=== PATIENT | male | born 1955 | race Caucasian/White ===

== ENCOUNTER 2020-04-27 17:51 | Outpatient (CLI) | payer OTHER, SELFPAY ==
[2020-04-27 18:20] LABS: Basophils Absolute Auto 0.07 K/mm3 (0.00-0.10); Basophils Percent Auto 0.9 % (0.0-1.0); Eosinophils Absolute Auto 0.32 K/mm3 (0.02-0.50); Eosinophils Percent Auto 4.1 % (1.0-6.0); Hematocrit 44.9 % (40.0-54.0); Hemoglobin 15.4 g/dL (14.0-18.0); Immature Granulocyte Absolute 0.05 K/mm3 (0.00-0.00); Immature Granulocyte Percent A 0.6 % (0.0-0.0); Lymphocytes Absolute Auto 2.66 K/mm3 (1.10-4.50); Lymphocytes Percent Auto 33.7 % (18.0-42.0); Mean Corpuscular HGB Conc 34.3 g/dL (32.0-36.0); Mean Corpuscular Volume 90.3 fL (78.0-102.0); Mean Platelet Volume 10.2 fl (8.7-11.0); Monocytes Absolute Auto 1.06 K/mm3 (0.10-0.90); Monocytes Percent Auto 13.4 % (2.0-11.0); Neutrophils Absolute Auto 3.7 K/mm3 (1.7-7.2); Neutrophils Percent Auto 47.3 % (50.0-70.0); Platelet Count Result 270 K/mm3 (150-420); Red Blood Count 4.97 M/mm3 (4.70-6.10); Red Cell Distribution Width 12.7 % (11.6-14.4); White Blood Count 7.9 K/mm3 (4.8-10.8)
[2020-04-27 18:28] LABS: Add Urine Microscopic? NO; Appearance Urine Clear (Clear); Bilirubin Urine Negative (Negative); Blood Urine Negative (Negative); Color Urine Yellow (Yellow); Glucose Urine UA Negative (Negative); Ketones Urine Negative (Negative); Leukocyte Esterase Ur Negative LEU/UL (Negative); Nitrate Urine Negative (Negative); Protein Urine Negative (Negative); pH Urine 6.5 (5.0-8.0)
[2020-04-27 18:35] LABS: Creatinine Urine 163.43 mg/dL (40-278)
[2020-04-27 18:36] LABS: MALB Creatinine Ratio 18.9 mg/g (0-30); Microalbumin Urine Random 30.9 mg/L
[2020-04-27 19:07] LABS: Alanine Aminotransferase 40 U/L (16-63); Albumin Level 3.9 g/dL (3.4-5.0); Alkaline Phosphatase 73 U/L (46-116); Anion Gap 12.6 mmol/L (7-16); Aspartate Amino Transferase 20 U/L (15-37); Bilirubin,Total 0.3 mg/dL (0.00-1.00); Blood Urea Nitrogen 24 mg/dL (7-18); Calcium 9.3 mg/dL (8.5-10.1); Carbon Dioxide 32 mmol/L (21-32); Chloride 98 mmol/L (98-108); Cholesterol 192 mg/dL (0-200); Estimated Glomerular Filt Rate 57; Glucose 163 mg/dL (70-99); HDL Direct 41 mg/dL (40-60); LDL Cholesterol Calculated 61 mg/dL (<130); Osmolality Calculated 296 mOsm/kg (285-295); Potassium 3.6 mmol/L (3.5-5.1); Prostate Specific Antigen 1.6 ng/mL (< OR = 4.0); Sodium 139 mmol/L (136-145); Total Protein 7.5 g/dL (6.4-8.2); Triglycerides 450 mg/dL (0-150)
[2020-04-27 19:16] LABS: LDL Cholesterol Direct 104 mg/dL (0-130)
== END 2020-04-27 17:52 | disposition home or self-care (01) ==
LOC: CHSLAB 17:55
PROVIDERS: PCP Internal Medicine; Visit Provider Internal Medicine
DX: Z00.00 Encounter for general adult medical examination without abnormal findings (principal); I10 Essential (primary) hypertension; E11.9 Type 2 diabetes mellitus without complications; E78.5 Hyperlipidemia, unspecified; Z12.5 Encounter for screening for malignant neoplasm of prostate
CPT/HCPCS: 36415; 80053; 80061; 81003; 82043; 83036; 83721; 84153; 85025; G0103

== ENCOUNTER 2021-01-01 18:38 | Outpatient (CLI) | payer OTHER, SELFPAY ==
--- NOTE | ~2021-01-01 | XR_ITS ---
EXAMINATION: XR knee RT 3V DATE: 01/01/2021 19:14 INDICATION: Right knee pain. TECHNIQUE: 4 views of right knee were obtained. COMPARISON: None. FINDINGS: There is varus angulation at the knee. No fracture. There is severe osteoarthritis of media l compartment and mild osteoarthritis of lateral and patellofemoral compartments. There is a small kn ee joint effusion. IMPRESSION: 1. Severe right knee osteoarthritis. 2. Small right knee joint effusion. Reviewed, dictated and finalized at location A. ET COORDINATOR
--- NOTE | ~2021-01-01 | XR_ITS ---
EXAMINATION: XR hip RT min 2V DATE: 01/01/2021 19:14 INDICATION: Right hip pain. TECHNIQUE: 2 views of right hip were obtained. COMPARISON: None. FINDINGS: Bone alignment is normal. No fracture. There is mild right hip osteoarthritis. IMPRESSION: 1. Mild right hip osteoarthritis. Reviewed, dictated and finalized at location A. CIATE CREATIVE DIRECTOR
[2021-01-01 19:08] LABS: Hemoglobin A1C 8.6 % (<5.7)
[2021-01-01 19:50] LABS: Alanine Aminotransferase 36 U/L (16-63); Albumin Level 4.1 g/dL (3.4-5.0); Alkaline Phosphatase 70 U/L (46-116); Anion Gap 11 mmol/L (8-16); Aspartate Amino Transferase 19 U/L (15-37); Bilirubin,Total 0.4 mg/dL (0.00-1.00); Blood Urea Nitrogen 25 mg/dL (7-18); Calcium 9.1 mg/dL (8.5-10.1); Carbon Dioxide 31 mmol/L (21-32); Chloride 98 mmol/L (98-108); Cholesterol 210 mg/dL (0-200); Estimated Glomerular Filt Rate 54; Glucose 103 mg/dL (70-99); HDL Direct 48 mg/dL (40-60); LDL Cholesterol Calculated 119 mg/dL (<130); Osmolality Calculated 294 mOsm/kg (285-295); Potassium 3.3 mmol/L (3.5-5.1); Sodium 140 mmol/L (136-145); Total Protein 8.1 g/dL (6.4-8.2); Triglycerides 214 mg/dL (0-150); Uric Acid 5.8 mg/dL (3.5-7.2)
== END 2021-01-01 18:39 | disposition home or self-care (01) ==
LOC: CHSLAB 18:41
PROVIDERS: PCP Internal Medicine; Visit Provider Internal Medicine
DX: M25.561 Pain in right knee (principal); E11.9 Type 2 diabetes mellitus without complications
CPT/HCPCS: 36415; 73502; 73562; 80053; 80061; 83036; 84550

== ENCOUNTER 2021-03-14 16:37 | Outpatient (NON) | payer OTHER, SELFPAY ==
[2021-03-14 17:20] LABS: Basophils Absolute Auto 0.05 K/mm3 (0.00-0.10); Basophils Percent Auto 0.6 % (0.0-1.0); Eosinophils Absolute Auto 0.18 K/mm3 (0.02-0.50); Eosinophils Percent Auto 2.3 % (1.0-6.0); Hemoglobin 15.2 g/dL (14.0-18.0); Immature Granulocyte Absolute 0.02 K/mm3 (0.00-0.00); Immature Granulocyte Percent A 0.3 % (0.0-0.0); Lymphocytes Absolute Auto 1.99 K/mm3 (1.10-4.50); Lymphocytes Percent Auto 25.4 % (18.0-42.0); Mean Corpuscular HGB Conc 34.5 g/dL (32.0-36.0); Mean Corpuscular Volume 89.8 fL (78.0-102.0); Mean Platelet Volume 10.1 fl (8.7-11.0); Monocytes Absolute Auto 0.86 K/mm3 (0.10-0.90); Neutrophils Absolute Auto 4.8 K/mm3 (1.7-7.2); Neutrophils Percent Auto 60.4 % (50.0-70.0); Platelet Count Result 249 K/mm3 (150-420); Red Cell Distribution Width 12.8 % (11.6-14.4); White Blood Count 7.9 K/mm3 (4.8-10.8)
[2021-03-14 17:28] LABS: D Dimer 0.39 mg/L (0.19-0.50)
[2021-03-14 17:39] LABS: Alanine Aminotransferase 31 U/L (16-63); Albumin Level 3.7 g/dL (3.4-5.0); Alkaline Phosphatase 66 U/L (46-116); Anion Gap 10 mmol/L (8-16); Aspartate Amino Transferase 16 U/L (15-37); Bilirubin,Total 0.7 mg/dL (0.00-1.00); Blood Urea Nitrogen 15 mg/dL (7-18); Calcium 9.3 mg/dL (8.5-10.1); Carbon Dioxide 29 mmol/L (21-32); Chloride 97 mmol/L (98-108); Creatine Kinase 100 U/L (39-308); Estimated Glomerular Filt Rate > 60; Glucose 93 mg/dL (70-99); Magnesium 2.1 mg/dL (1.8-2.4); NT Pro B Type Natriuretic Pept 25 pg/mL (0-125); Osmolality Calculated 282 mOsm/kg (285-295); Potassium 3.2 mmol/L (3.5-5.1); Sodium 136 mmol/L (136-145); Total Protein 7.7 g/dL (6.4-8.2); Troponin I 4.3 ng/L (0.00-60.4)
[2021-03-14 17:41] LABS: Creatine Kinase MB < 0.50 ng/mL (0.00-5.00)
== END 2021-03-14 16:38 | disposition home or self-care (01) ==
LOC: CHSLAB 16:38
PROVIDERS: PCP Internal Medicine; Visit Provider Internal Medicine
DX: R55 Syncope and collapse (principal)
CPT/HCPCS: 36415; 80053; 82550; 82553; 83735; 83880; 84484; 85025; 85380

== ENCOUNTER 2021-07-09 17:51 | Emergency (ER) | payer OTHER, SELFPAY ==
[2021-07-09 18:00] VITALS: PULSE 72; RESP 16; TEMP 36.6; O2SAT 99
--- NOTE | 2021-07-09 18:19 | ED.SKABFB ---
HPI - Skin/Abscess/Foreign Bdy General Chief complaint: Skin/Abscess/Foreign Body Stated complaint: bug bite on arm, eye problems Source: patient Mode of arrival: ambulatory Limitations: no limitations History of Present Illness HPI narrative: This is a 65-year-old gentleman that presents with some abscess to his right upper arm currently it is red erythematous currently no drainage non fluctuant started a few days ago and has been getting worse apparently he tried poking it with a knife, and possibly related some infection to his right eye is conjunctiva is erythematous without any drainage no fever or chills. complaint: abscess/boil Tetanus up to date: unsure Location: RUE Severity: moderate Related Data Allergies Allergy/AdvReac Type Severity Reaction Status Date / Time No Known Allergies Allergy Verified 07/09/21 18:11 Review of Systems Review of Systems: All systems reviewed & are unremarkable except as noted in HPI and below PMFSH Past Medical History Medical History Patient denies medical problems Exam Const: General: no acute distress and alert Orientation/consciousness: patient oriented x3 HENMT: Head: normal to inspection Eyes: Conjunctivae: conjunctivae normal Pupils: Equal, round and reactive pupils present Neck: Neck: normal visual inspection, no lymphadenopathy and no meningeal signs Chest: Chest palpation & inspection: normal inspection of the chest Resp: Effort & Inspection: normal respiratory effort Auscultation: clear to auscultation bilaterally : Testes: Testes normal Back/Spine/Pelvis: Back: no CVA tenderness Skin: Other: abscess with non fluctuance no drainage warm tender with erythema Neuro: General: patient oriented x3 and moves all extremities Psych: Mental Status: mental status grossly normal Course Course Emergency Course: patient received a shot of ceftriaxone along with tetanus, and because of conjunctival injection received antibiotic eyedrop. Vital Signs Vital signs: Vital Signs Temperature 36.6 C 07/09/21 18:00 Pulse Rate 72 07/09/21 18:00 Respiratory Rate 16 07/09/21 18:00 Pulse Oximetry 99 07/09/21 18:00 Temperature 36.6 C 07/09/21 18:00 Pulse Rate 72 07/09/21 18:00 Respiratory Rate 16 07/09/21 18:00 Pulse Oximetry 99 07/09/21 18:00 Critical Care Time Critical Care Time Critical Care Time: No Discharge Plan Discharge Clinical Impression: Abscess of skin or subcutaneous tissue Qualifiers: Site of cutaneous abscess: extremity Site of cutaneous abscess of extremity: upper extremity Laterality: right Qualified Code(s): L02.413 - Cutaneous abscess of right upper limb Conjunctivitis Qualifiers: Conjunctivitis type: acute Acute conjunctivitis type: bacterial Laterality: right Qualified Code(s): H10.31 - Unspecified acute conjunctivitis, right eye Patient Disposition: Home, Self-Care Condition: Stable Instructions: Antibiotic Form, Abscess (ED), Conjunctivitis (ED) Additional Instructions: can use antibiotic eyedrops 1 drop to right eye 4 times daily x1 week, take medicine as prescribed and follow-up with primary care physician if symptoms persist or worsen. Prescriptions: New amoxicillin-pot clavulanate [Augmentin] 875-125 mg tablet 1 tablet PO Q12H Qty: 20 RF: 0 Follow-up/Referrals: Dann Adamson MD [Primary Care Provider] - Time of Disposition: 18:26
[2021-07-09] MEDS: cefTRIAXone 1 GM VIAL IM (18:23)
[2021-07-09] MEDS: TETANUS,DIPHTHERIA,AC PERTUSSIS ADULT 0.5 ML (ADACEL) IM (18:23)
[2021-07-09] MEDS: NEOMYCIN/POLYMYXIN/DEXAMETH OP SUSP 5 ML BTL 1 DROP RIGHT EYE (18:23)
[2021-07-09 18:30] VITALS: BP 140/80; PULSE 70; RESP 18; TEMP 36.6; O2SAT 99
== END 2021-07-09 18:32 | disposition home or self-care (01) ==
PROVIDERS: Emergency Provider Emergency Medicine; PCP Internal Medicine
DX: L02.413 Cutaneous abscess of right upper limb (principal); H10.31 Unspecified acute conjunctivitis, right eye
CPT/HCPCS: 90471; 90715; 96372; 99283; A9270; J0696

== ENCOUNTER 2022-04-12 16:23 | Outpatient (CLI) | payer OTHER, SELFPAY ==
[2022-04-12 16:48] LABS: Add Urine Microscopic? NO; Appearance Urine Clear (Clear); Basophils Absolute Auto 0.05 K/mm3 (0.00-0.10); Basophils Percent Auto 0.7 % (0.0-1.0); Bilirubin Urine Negative (Negative); Blood Urine Negative (Negative); Color Urine Yellow (Yellow); Eosinophils Absolute Auto 0.37 K/mm3 (0.02-0.50); Eosinophils Percent Auto 5.4 % (1.0-6.0); Glucose Urine UA Negative (Negative); Hemoglobin 15.5 g/dL (14.0-18.0); Immature Granulocyte Absolute 0.02 K/mm3 (0.00-0.00); Immature Granulocyte Percent A 0.3 % (0.0-0.0); Ketones Urine Negative (Negative); Leukocyte Esterase Ur Negative (Negative); Lymphocytes Absolute Auto 2.49 K/mm3 (1.10-4.50); Lymphocytes Percent Auto 36.3 % (18.0-42.0); Mean Corpuscular HGB Conc 33.7 g/dL (32.0-36.0); Mean Corpuscular Hemoglobin 30.8 pg (27.0-31.0); Mean Corpuscular Volume 91.3 fL (78.0-102.0); Mean Platelet Volume 9.7 fl (8.7-11.0); Monocytes Absolute Auto 0.99 K/mm3 (0.10-0.90); Monocytes Percent Auto 14.4 % (2.0-11.0); Neutrophils Absolute Auto 2.9 K/mm3 (1.7-7.2); Neutrophils Percent Auto 42.9 % (50.0-70.0); Nitrate Urine Negative (Negative); Platelet Count Result 250 K/mm3 (150-420); Protein Urine Negative (Negative); Red Blood Count 5.04 M/mm3 (4.70-6.10); Red Cell Distribution Width 12.7 % (11.6-14.4); Urobilinogen Urine 0.2 mg/dL (0.2-1.0); White Blood Count 6.9 K/mm3 (4.8-10.8); pH Urine 6.5 (5.0-8.0)
[2022-04-12 16:54] LABS: Creatinine Urine 97.21 mg/dL (40-278); MALB Creatinine Ratio 13.3 mg/g (0-30); Microalbumin Urine Random < 13.0 mg/L
[2022-04-12 16:57] LABS: Hemoglobin A1C 6.9 % (<5.7)
[2022-04-12 17:35] LABS: Alanine Aminotransferase 15 U/L (16-63); Albumin Level 3.9 g/dL (3.4-5.0); Alkaline Phosphatase 109 U/L (46-116); Anion Gap 7 mmol/L (8-16); Aspartate Amino Transferase 15 U/L (15-37); Bilirubin,Total 0.4 mg/dL (0.00-1.00); Blood Urea Nitrogen 17 mg/dL (7-18); Calcium 8.9 mg/dL (8.5-10.1); Carbon Dioxide 27 mmol/L (21-32); Chloride 101 mmol/L (98-108); Cholesterol 186 mg/dL (0-200); Estimated Glomerular Filt Rate > 60; Glucose 84 mg/dL (70-99); HDL Direct 43 mg/dL (40-60); LDL Cholesterol Calculated 80 mg/dL (<130); Osmolality Calculated 280 mOsm/kg (285-295); Potassium 3.6 mmol/L (3.5-5.1); Prostate Specific Antigen 2.2 ng/mL (< OR = 4.0); Sodium 135 mmol/L (136-145); Thyroid Stimulating Hormone 0.95 uIU/mL (0.36-3.74); Total Protein 7.5 g/dL (6.4-8.2); Triglycerides 313 mg/dL (0-150)
== END 2022-04-12 16:24 | disposition home or self-care (01) ==
LOC: CHSLAB 16:31
PROVIDERS: PCP Internal Medicine; Visit Provider Internal Medicine
DX: Z00.00 Encounter for general adult medical examination without abnormal findings (principal); I10 Essential (primary) hypertension; E78.5 Hyperlipidemia, unspecified; E11.9 Type 2 diabetes mellitus without complications; Z12.5 Encounter for screening for malignant neoplasm of prostate
CPT/HCPCS: 36415; 80053; 80061; 81003; 82043; 83036; 84153; 84443; 85025; G0103

== ENCOUNTER 2023-07-28 14:44 | Outpatient (CLI) | payer OTHER, SELFPAY ==
[2023-07-28 17:18] LABS: Cholesterol 181 mg/dL (0-200); HDL Direct 44 mg/dL (40-60); LDL Cholesterol Calculated 102 mg/dL (<130); Prostate Specific Antigen 2.1 ng/mL (< OR = 4.0); Thyroid Stimulating Hormone 0.54 uIU/mL (0.36-3.74); Triglycerides 173 mg/dL (0-150)
[2023-07-28 17:24] LABS: Hemoglobin A1C 9.4 % (<5.7)
== END 2023-07-28 14:45 | disposition home or self-care (01) ==
LOC: CHSLAB 14:54
PROVIDERS: PCP Internal Medicine; Visit Provider Internal Medicine
DX: Z00.00 Encounter for general adult medical examination without abnormal findings (principal); I10 Essential (primary) hypertension; E11.9 Type 2 diabetes mellitus without complications; Z12.5 Encounter for screening for malignant neoplasm of prostate
CPT/HCPCS: 36415; 80061; 83036; 84153; 84443; G0103

== ENCOUNTER 2024-11-22 12:17 | Outpatient (CLI) | payer OTHER, MEDICARE, SELFPAY ==
[2024-11-22 12:50] LABS: Add Urine Microscopic? YES; Appearance Urine Clear (Clear); Basophils Absolute Auto 0.07 K/mm3 (0.00-0.10); Basophils Percent Auto 1.3 % (0.0-1.0); Bilirubin Urine Negative (Negative); Blood Urine Negative (Negative); Color Urine Yellow (Yellow); Eosinophils Absolute Auto 0.14 K/mm3 (0.02-0.50); Eosinophils Percent Auto 2.5 % (1.0-6.0); Glucose Urine UA Trace (Negative); Hematocrit 45.9 % (37.0-46.0); Hemoglobin 15.2 g/dL (12.4-15.3); Immature Granulocyte Absolute 0.03 K/mm3 (0.00-0.00); Immature Granulocyte Percent A 0.5 % (0.0-0.0); Ketones Urine Negative (Negative); Leukocyte Esterase Ur Negative (Negative); Lymphocytes Absolute Auto 1.44 K/mm3 (1.10-4.50); Mean Corpuscular HGB Conc 33.1 g/dL (32-36); Mean Corpuscular Hemoglobin 30.2 pg (27.0-31.0); Mean Corpuscular Volume 91.1 fL (78.0-102.0); Mean Platelet Volume 9.9 fl (8.7-11.0); Monocytes Absolute Auto 0.73 K/mm3 (0.10-0.90); Monocytes Percent Auto 13.2 % (2.0-11.0); Neutrophils Absolute Auto 3.13 K/mm3 (1.70-7.20); Neutrophils Percent Auto 56.5 % (50.0-70.0); Nitrate Urine Negative (Negative); Platelet Count Result 253 K/mm3 (150-420); Protein Urine 1+ (Negative); Red Blood Count 5.04 M/mm3 (4.70-6.10); Specific Grav Ur >= 1.030 (1.010-1.020); White Blood Count 5.5 K/mm3 (4.8-10.8)
[2024-11-22 13:05] LABS: Bacteria Urine Trace /hpf; Mucus Urine Moderate /lpf; RBC Urine None seen /hpf (0-2); Squamous Epithelial Cell Urine Rare /hpf (Few); WBC Urine None seen /hpf (0-3)
[2024-11-22 13:18] LABS: Creatinine Urine 303.74 mg/dL (40-278)
[2024-11-22 13:23] LABS: MALB Creatinine Ratio 41.7 mg/g (0-30); Microalbumin Urine Random 126.9 mg/L
[2024-11-22 13:39] LABS: Alanine Aminotransferase 44 U/L (16-63); Albumin Level 3.9 g/dL (3.4-5.0); Alkaline Phosphatase 88 U/L (46-116); Anion Gap 14 mmol/L (4-12); Aspartate Amino Transferase 19 U/L (15-37); Bilirubin,Total 0.7 mg/dL (0.00-1.00); Blood Urea Nitrogen 18 mg/dL (7-18); Calcium 9.1 mg/dL (8.5-10.1); Carbon Dioxide 25 mmol/L (21-32); Chloride 101 mmol/L (98-108); Cholesterol 213 mg/dL (0-200); Estimated Glomerular Filt Rate > 60; Glucose 222 mg/dL (70-99); HDL Direct 48 mg/dL (40-60); LDL Cholesterol Calculated 135 mg/dL (<130); Osmolality Calculated 298 mOsm/kg (285-295); Potassium 4.7 mmol/L (3.5-5.1); Prostate Specific Antigen 1.9 ng/mL (< OR = 4.0); Sodium 140 mmol/L (136-145); Thyroid Stimulating Hormone 0.49 uIU/mL (0.36-3.74); Total Protein 7.2 g/dL (6.4-8.2); Triglycerides 150 mg/dL (0-150)
[2024-11-22 13:46] LABS: Hemoglobin A1C 7.9 % (<5.7)
== END 2024-11-22 12:18 | disposition home or self-care (01) ==
PROVIDERS: PCP Internal Medicine; Visit Provider Internal Medicine
DX: I10 Essential (primary) hypertension (principal); E11.9 Type 2 diabetes mellitus without complications; Z12.5 Encounter for screening for malignant neoplasm of prostate
CPT/HCPCS: 36415; 80053; 80061; 81001; 82043; 83036; 84153; 84443; 85025; G0103

== ENCOUNTER 2025-03-24 17:00 | Observation (INO) | payer OTHER, MEDICARE, SELFPAY ==
[2025-03-24] VITALS (29 sets, daily range): BP systolic 114–167; BP diastolic 77–119; PULSE 95–107; RESP 14–26; TEMP 36.9; O2SAT 86–98; BMI 35.5
--- NOTE | ~2025-03-24 | XR_ITS ---
XR chest 1V portable Ordering provider: Isidro Garcia MD History: 69 years Male with . shortness of breath . Comparison: None. FINDINGS: MEDIASTINUM: The cardiac silhouette is not enlarged. LUNGS: No effusions or pneumothorax. Opacification in the left lung base suggestive of pneumonia. OTHER: No free air under the diaphragm. IMPRESSION: Left basal pneumonia. Reviewed, dictated and finalized at location A. IMPRESSION: Left basal pneumonia.
--- NOTE | ~2025-03-24 | CT_ITS ---
CTA chest PE protocol Ordering provider: Isidro Garcia MD History: 69 years Male with . shortness of breath with elevated D-dimer . Comparison: None. Technique: CT angiogram chest was performed following timed intravenous injection of contrast. Thin s lice axial images and reformatted coronal images were obtained. Three dimensional reformatted images of the chest were also obtained using a [employer] workstation. . Automated exposure control and iterati ve reconstruction technique were employed. The dose-length product was 810.63 mGy-cm. 90 mL Omnipaque 350 was given IV. Findings: PULMONARY ARTERIES: No pulmonary embolus. VISUALIZED THORACIC INLET: Normal. MEDIASTINUM: Aorta/coronary arteries: Mild atheromatous disease. Heart/other: The heart is not enlarged. Lymph nodes: No mediastinal or hilar adenopathy. LUNGS: Left basilar pneumonia is noted. Minimal infiltrate is also seen in the right lung base. Minimal infi ltrate is seen in the left upper lobe laterally. No pulmonary nodules or masses. No effusions. No pne umothorax. VISUALIZED UPPER ABDOMEN: Fat infiltration of the liver. Small sliding hiatus hernia. Otherwise, the visualized upper abdomen is normal. MUSCULOSKELETAL: Soft tissues: The superficial soft tissues are normal. Bones: Normal spine. IMPRESSION: 1. No pulmonary embolism. 2. Bibasilar pneumonia more on the left side. Minimal infiltrate in the left upper lobe. 3. Fat infiltration of the liver. 4. Small sliding hiatus hernia. Reviewed, dictated and finalized at location A. IMPRESSION: 1. No pulmonary embolism. 2. Bibasilar pneumonia more on the left side. Minimal infiltrate in the left u pper lobe. 3. Fat infiltration of the liver. 4. Small sliding hiatus hernia.
--- NOTE | 2025-03-24 17:11 | ECG_ITS ---
Test Date: 2025-03-24 17:23:33 Measurements Intervals [place] Rate: 101 P: 71 HI: 134 QRS: 73 QRSD: 82 T: 56 QT: 327 QTc: 425 Interpretive Statements SINUS TACHYCARDIA NONSPECIFIC ST ABNORMALITY ABNORMAL ECG No previous ECG available for comparison Electronically Signed On 03-25-2025 10:00:32 CDT by Cedric Corado M.D.
[2025-03-24] MEDS: IPRATROPIUM 0.5 MG/ALBUTEROL SULFATE 2.5 MG AMPUL.NEB 3 ML INHALATION ×2 (17:23→21:11)
[2025-03-24] MEDS: methylPREDNISolone SOD SUCC 125 MG VIAL IV PUSH (17:46)
[2025-03-24 17:52] LABS: Basophils Absolute Auto 0.05 K/mm3 (0.00-0.10); Basophils Percent Auto 0.5 % (0.0-1.0); Eosinophils Absolute Auto 0.09 K/mm3 (0.02-0.50); Eosinophils Percent Auto 0.8 % (1.0-6.0); Hematocrit 44.8 % (37.0-46.0); Hemoglobin 14.8 g/dL (12.4-15.3); Immature Granulocyte Absolute 0.07 K/mm3 (0.00-0.00); Immature Granulocyte Percent A 0.7 % (0.0-0.0); Lymphocytes Absolute Auto 1.75 K/mm3 (1.10-4.50); Lymphocytes Percent Auto 16.3 % (18.0-42.0); Mean Corpuscular Hemoglobin 30.1 pg (27.0-31.0); Mean Corpuscular Volume 91.1 fL (78.0-102.0); Monocytes Absolute Auto 1.55 K/mm3 (0.10-0.90); Monocytes Percent Auto 14.4 % (2.0-11.0); Neutrophils Absolute Auto 7.22 K/mm3 (1.70-7.20); Neutrophils Percent Auto 67.3 % (50.0-70.0); Platelet Count Result 242 K/mm3 (150-420); Red Blood Count 4.92 M/mm3 (4.70-6.10); Red Cell Distribution Width 12.6 % (11.6-14.4); White Blood Count 10.7 K/mm3 (4.8-10.8)
[2025-03-24 17:55] LABS: Lactic Acid Reflex 1.6 mmol/L (0.4-2.0)
[2025-03-24 17:56] LABS: Alanine Aminotransferase 22 U/L (6-50); Alkaline Phosphatase 81 U/L (38-126); Anion Gap 8 mmol/L (4-12); Aspartate Amino Transferase 28 U/L (17-59); Bilirubin,Total 1.2 mg/dL (0.2-1.3); Blood Urea Nitrogen 16 mg/dL (9-20); Calcium 8.8 mg/dL (8.4-10.2); Carbon Dioxide 28 mmol/L (22-30); Chloride 101 mmol/L (98-107); Estimated Glomerular Filt Rate > 60; Glucose 128 mg/dL (65-110); Magnesium 2.5 mg/dL (1.6-2.3); Osmolality Calculated 287 mOsm/kg (285-295); Potassium 3.6 mmol/L (3.4-5.0); Sodium 137 mmol/L (137-145); Total Protein 7.3 g/dL (6.3-8.2)
[2025-03-24 17:58] LABS: INR 1.1; Partial Thromboplastin Time 27.4 Sec (23.9-30.70); Prothrombin Time 11.9 Seconds (9.50-12.1)
[2025-03-24 18:00] LABS: D Dimer 0.81 mg/L (0.19-0.50)
[2025-03-24 18:07] LABS: NT Pro B Type Natriuretic Pept 126 pg/mL (19.9-100); Troponin I 0.016 ng/mL (0.000-0.034)
[2025-03-24 18:20] LABS: Influenza A QL RT-PCR Negative (Negative); Influenza B QL RT-PCR Negative (Negative); RSV RNA, RT-PCR Negative (Negative); SARS-CoV-2 RNA PCR Negative (Negative)
--- NOTE | 2025-03-24 18:50 | PC.NURSE ---
ASSUMED CARE. REPORT RECEIVED FROM SUSAN RODRIGUEZ.
--- NOTE | 2025-03-24 19:20 | PC.NURSE ---
PATIENT IS RESTING ON STRETCHER. NON PRODUCTIVE COUGH AT THIS TIME. PATIENT IS AWARE OF POSSIBLE ADMISSION FOR PNEUMONIA. CONCERNED ABOUT HIS DOGS AT HOME.
--- NOTE | 2025-03-24 19:45 | PC.NURSE ---
DR LLANOS AT THE BEDSIDE
--- NOTE | 2025-03-24 19:45 | ED_ITS ---
HPI - SOB/Dyspnea General Chief Complaint: Shortness of Breath/Dyspnea Stated Complaint: sob x1 week Time Seen by Provider: 03/24/25 17:11 Source: patient Mode of arrival: ambulatory Limitations: no limitations History of Present Illness HPI Narrative: this is a 69-year-old male with no significant past medical history presents with cough congestion and shortness of breath with some chills no fever, does have some nausea with some no abdominal pain no chest pain or chest tightness no dysuria or hematuria no flank pain. MD elicited complaint: shortness of breath and cough Onset (ago): day(s) Severity: moderate Related Data Allergies Allergy/AdvReac Type Severity Reaction Status Date / Time No Known Allergies Allergy Verified 03/24/25 17:01 Review of Systems 2 Review of Systems: All systems reviewed & are unremarkable except as noted in HPI and below PMFSH Past Medical History Medical History Patient denies medical problems Exam 2 Const: General: no acute distress and ill appearing Nutritional Appearance: obese Orientation/consciousness: patient oriented x3 HENMT: Head: normal to inspection Neck: Neck: normal visual inspection, no lymphadenopathy and no meningeal signs Chest: Chest palpation & inspection: normal inspection of the chest Resp: Effort & Inspection: normal respiratory effort Auscultation: rhonchi Cardio: Rate: regular rate Rhythm: regular rhythm GI: GI Palp: Yes Soft to palpation Auscultation: normal bowel sounds : General: Yes bladder normal to palpation Urinary Catheter: Urinary Catheter: patent and draining Skin: General skin exam: normal color Rashes: no rashes Extrem: General: normal to inspection, no clubbing, cyanosis or edema and no pedal edema Course Course Emergency Course: Patient received ceftriaxone and to the azithromycin for left lower lobe pneumonia seen on chest x-ray, white count 10.7, patient had an elevated D-dimer and had a CTA which showed no pulmonary embolism will admit patient for pneumonia. Vital Signs Vital signs: Vital Signs Temperature 36.9 C 03/24/25 17:00 Pulse Rate 104 H 03/24/25 17:00 Respiratory Rate 18 03/24/25 17:00 Blood Pressure 167/92 H 03/24/25 17:00 Pulse Oximetry 93 03/24/25 17:00 Oxygen Delivery Room Air 03/24/25 17:00 Temperature 36.9 C 03/24/25 17:00 Pulse Rate 107 H 03/24/25 19:41 Respiratory Rate 24 H 03/24/25 19:41 Blood Pressure 156/81 H 03/24/25 19:41 Pulse Oximetry 91 03/24/25 19:41 Oxygen Delivery Room Air 03/24/25 19:41 MDM - SOB/Dyspnea Lab Data 03/24/25 17:32 03/24/25 17:33 Labs: Lab Results 03/24/25 03/24/25 Range/Units 17:32 17:33 WBC 10.7 (4.8-10.8) K/mm3 RBC 4.92 (4.70-6.10) M/mm3 Hgb 14.8 (12.4-15.3) g/dL Hct 44.8 (37.0-46.0) % MCV 91.1 (78.0-102.0) fL MCH 30.1 (27.0-31.0) pg MCHC 33.0 (32-36) g/dL RDW 12.6 (11.6-14.4) % Plt Count 242 (150-420) K/mm3 MPV 10.0 (8.7-11.0) fl Immature Gran % (Auto) 0.7 H (0.0-0.0) % Neut % (Auto) 67.3 (50.0-70.0) % Lymph % (Auto) 16.3 L (18.0-42.0) % Pine % (Auto) 14.4 H (2.0-11.0) % Eos % (Auto) 0.8 L (1.0-6.0) % Baso % (Auto) 0.5 (0.0-1.0) % Lymph # (Auto) 1.75 (1.10-4.50) K/mm3 Pine # (Auto) 1.55 H (0.10-0.90) K/mm3 Eos # (Auto) 0.09 (0.02-0.50) K/mm3 Baso # (Auto) 0.05 (0.00-0.10) K/mm3 Abs Immat Gran (auto) 0.07 H (0.00-0.00) K/mm3 Absolute Neuts (auto) 7.22 H (1.70-7.20) K/mm3 Absolute Nucleated RBC 0.00 (0.00-0.00) K/mm3 Nucleated RBC % 0.0 (0-0.0) % PT 11.9 (9.50-12.1) Seconds INR 1.1 APTT 27.4 (23.9-30.70) Sec D-Dimer 0.81 H* (0.19-0.50) mg/L Sodium 137 (137-145) mmol/L Potassium 3.6 (3.4-5.0) mmol/L Chloride 101 (98-107) mmol/L Carbon Dioxide 28 (22-30) mmol/L Anion Gap 8 (4-12) mmol/L BUN 16 (9-20) mg/dL Creatinine 0.99 (0.7-1.3) mg/dL Estim Creat Clear Calc Not Reportable Estimated GFR > 60 (59 - ) Glucose 128 H (65-110) mg/dL Calculated Osmolality 287 (285-295) mOsm/kg Lactic Acid 1.6 (0.4-2.0) mmol/L Calcium 8.8 (8.4-10.2) mg/dL Magnesium 2.5 H (1.6-2.3) mg/dL Total Bilirubin 1.2 (0.2-1.3) mg/dL AST 28 (17-59) U/L ALT 22 (6-50) U/L Alkaline Phosphatase 81 (38-126) U/L Troponin I 0.016 (0.000-0.034) ng/mL NT-Pro-B Natriuret Pep 126 H (19.9-100) pg/mL Total Protein 7.3 (6.3-8.2) g/dL Albumin 4.0 (3.5-5.1) g/dL Influenza A (RT-PCR) Negative (Negative) Influenza B (RT-PCR) Negative (Negative) RSV (RT-PCR) Negative (Negative) SARS-CoV-2 RNA (RT-PCR) Negative (Negative) Critical Care Time Critical Care Time Critical Care Time: No Discharge Plan Discharge Clinical Impression: Pneumonia Qualifiers: Pneumonia type: due to unspecified organism Laterality: left Lung location: l ower lobe of lung Qualified Code(s): J18.9 - Pneumonia, unspecified organism Patient Disposition: Home Condition: Guarded Prognosis Instructions: Antibiotic Form Patient Language: Kinyarwanda Prescriptions: No Action amoxicillin-pot clavulanate [Augmentin] 875-125 mg tablet 1 tablet PO Q12H Qty: 20 0RF Follow-up/Referrals: Dann Adamson MD [Primary Care Provider] - Time of Disposition: 19:52
--- NOTE | 2025-03-24 20:09 | PC.NURSE ---
SPOKE WITH SHANNON RODRIGUEZ ON MED/SURG FLOOR. PATIENT IS TO GO TO 226. REGISTRATION WAS NOTIFIED
--- NOTE | 2025-03-24 20:42 | PC.NURSE ---
URINE TAKEN DOWN TO LAB
[2025-03-24 20:58] LABS: Add Urine Microscopic? YES; Appearance Urine Clear (Clear); Bacteria Urine None seen /hpf; Bilirubin Urine Negative (Negative); Blood Urine Negative (Negative); Color Urine Yellow (Yellow); Glucose Urine UA Negative (Negative); Ketones Urine 2+ (Negative); Leukocyte Esterase Ur Negative LEU/UL (Negative); Nitrate Urine Negative (Negative); Protein Urine Trace (Negative); RBC Urine 0-2 /hpf (0-2); Specific Grav Ur <= 1.005 (1.010-1.020); Squamous Epithelial Cell Urine None seen /hpf (Few); WBC Urine 0-3 /hpf (0-3)
[2025-03-24] MEDS: SODIUM CHLORIDE 0.9% IV 1,000 ML 100 ML IV CONT (21:08)
[2025-03-24] MEDS: AZITHROMYCIN 500 MG/NS 250 ML 500 MG/250 ML BAG 250 MG IVPB (21:09)
--- NOTE | 2025-03-24 21:17 | ADMGEN ---
This patient, Taurus Meraz, was admitted to 2nd Floor Room 226-1. Patient oriented to hospital policies and general routines including ID bracelet, bed and alarms, visiting hours, pain management, procedures, bathroom and other care routines, personal items, smoking policy, room service/diet, and visiting hours. Information on how to activate the Rapid Response Team has been discussed. Patient are encouraged to report perceived risks to care and to ask questions if they do not understand what they are told or what they should do.
[2025-03-25] VITALS: BP 153/87; PULSE 105; RESP 20; TEMP 36.8; O2SAT 93
[2025-03-25 01:00] VITALS: O2SAT 94
[2025-03-25 02:00] VITALS: O2SAT 90
[2025-03-25 05:28] LABS: Basophils Absolute Auto 0.01 K/mm3 (0.00-0.10); Basophils Percent Auto 0.1 % (0.0-1.0); Hematocrit 43.9 % (37.0-46.0); Hemoglobin 14.4 g/dL (12.4-15.3); Immature Granulocyte Absolute 0.08 K/mm3 (0.00-0.00); Immature Granulocyte Percent A 0.8 % (0.0-0.0); Lymphocytes Absolute Auto 0.63 K/mm3 (1.10-4.50); Lymphocytes Percent Auto 6.6 % (18.0-42.0); Mean Corpuscular HGB Conc 32.8 g/dL (32-36); Mean Corpuscular Hemoglobin 29.9 pg (27.0-31.0); Mean Corpuscular Volume 91.1 fL (78.0-102.0); Mean Platelet Volume 10.2 fl (8.7-11.0); Monocytes Absolute Auto 0.51 K/mm3 (0.10-0.90); Monocytes Percent Auto 5.3 % (2.0-11.0); Neutrophils Absolute Auto 8.35 K/mm3 (1.70-7.20); Neutrophils Percent Auto 87.2 % (50.0-70.0); Platelet Count Result 255 K/mm3 (150-420); Red Blood Count 4.82 M/mm3 (4.70-6.10); Red Cell Distribution Width 12.6 % (11.6-14.4); White Blood Count 9.6 K/mm3 (4.8-10.8)
[2025-03-25 05:48] LABS: Alanine Aminotransferase 25 U/L (6-50); Albumin Level 3.6 g/dL (3.5-5.1); Alkaline Phosphatase 78 U/L (38-126); Anion Gap 6 mmol/L (4-12); Aspartate Amino Transferase 25 U/L (17-59); Bilirubin,Total 0.6 mg/dL (0.2-1.3); Blood Urea Nitrogen 21 mg/dL (9-20); Calcium 8.6 mg/dL (8.4-10.2); Carbon Dioxide 26 mmol/L (22-30); Chloride 105 mmol/L (98-107); Estimated CRCL calculation 88 ml/min; Estimated Glomerular Filt Rate > 60; Glucose 336 mg/dL (65-110); Osmolality Calculated 300 mOsm/kg (285-295); Potassium 4.4 mmol/L (3.4-5.0); Sodium 137 mmol/L (137-145); Total Protein 6.6 g/dL (6.3-8.2)
[2025-03-25 06:10] VITALS: O2SAT 90
[2025-03-25 07:46] LABS: Glucose Point of Care 287 mg/dl (65-105)
[2025-03-25 08:00] VITALS: BP 155/66; PULSE 113; RESP 20; TEMP 36.5; O2SAT 91
--- NOTE | 2025-03-25 10:11 | P.SS_ITS ---
Same Day Admit/Disch: HPI History of Present Illness Chief complaint: PNEUMONIA Narrative: Taurus Meraz is a 69 year old male who presented to the emergency department with complaints of worsening shortness a breath and congestion. Patient reported symptoms began about a week and half ago after a bike riding trip at which he assumed it was just a upper respiratory infection attempted OTC medications with no relief presented today with continued shortness a breath and productive cough. Patient denied any chest pain, nausea, vomiting, fever, or chills. patient reports past medical history of diabetes, arrhythmias, anxiety, diabetic neuropathy, and BPH. in the emergency department patient was requiring supplemental oxygen to maintain 92% been placed on 2 L a CTA chest was completed that showed no pulmonary embolism but did show bibasilar pneumonia more on the left side, other labs unremarkable however he was tachycardic. patient was admitted to the medical unit for treatment of pneumonia. [facility] Past Medical History Medical History Anxiety Diabetic neuropathy BPH (benign prostatic hyperplasia) Diabetes Patient denies medical problems Social History Social History Smoking status: Never smoker Second hand tobacco smoke exposure: No Alcohol intake: never Substance use: never Substance use type: does not use Do You Feel Safe in your Home?: Yes Lack of Transportation: YES Lack of Food: Never True Current Housing: I Have Housing Concerned About Future Housing: No Difficulty Paying Gas/Electric Bills: No Difficulty Paying for Meds: No Currently Unemployed: No Education: High School Diploma/GED Difficulty w/ Childcare or Family Care: No Spiritual care concerns: No Same Day Admit/Disch: Med Pre-admit Medications Home Medications Medication Instructions Recorded Confirmed Type atenolol 25 mg tablet 25 mg PO Q24H 03/24/25 03/24/25 History duloxetine 60 mg capsule,delayed 60 mg PO .COMPLEX 03/24/25 03/24/25 History release glimepiride 4 mg tablet 4 mg PO BID 03/24/25 03/24/25 History pregabalin 75 mg capsule 75 mg PO Q12H 03/24/25 03/24/25 History semaglutide 14 mg tablet (Rybelsus) 14 mg PO DAILY@0800 03/24/25 03/24/25 History tamsulosin 0.4 mg capsule 0.4 mg PO Q24H 03/24/25 03/24/25 History albuterol sulfate 90 mcg/actuation 1 inh inhalation QID PRN shortness 03/25/25 Rx aerosol inhaler (Ventolin HFA) of breath or wheezing #6.7 grams amoxicillin 875 mg-potassium 1 tablet PO Q12H #14 tabs 03/25/25 Rx clavulanate 125 mg tablet ipratropium 0.5 mg-albuterol 3 mg 3 ml inhalation Q6H PRN shortness 03/25/25 Rx (2.5 mg base)/3 mL nebulization of breath or wheezing #90 mL soln Review of Systems Review of Systems All systems reviewed & are unremarkable except as noted in HPI and below Exam Const: General: comfortable and no acute distress HENMT: Face/Nose/Sinus: Normal nares present Mouth: Yes moist mucous membranes Eyes: General: appearance normal, both eyes and all related structures Sclera: sclerae normal Pupils: Equal, round and reactive pupils present Neck: Neck: supple and no JVD Resp: Effort & Inspection: normal respiratory effort Auscultation: wheezes scattered wheezes and diminished lung sounds on the left in the lower lung meadows Other: Productive cough Cardio: Rate: tachycardic Rhythm: regular rhythm GI: GI Palp: Yes Soft to palpation Auscultation: normal bowel sounds Skin: General skin exam: normal color and no rashes or lesions noted Wounds: no wounds Neuro: General: gait normal Speech: normal speech Motor exam (neuro): 5/5 motor strength present throughout Sensory Exam: normal sensation Extrem: General: normal to inspection Psych: Mental Status: mental status grossly normal Affect: Sad affect present DS: Data Data Completed and Pending Labs on day of discharge: Labs from last 24 hours 03/25/25 03/25/25 03/24/25 07:41 05:10 17:33 WBC 9.6 RBC 4.82 Hgb 14.4 Hct 43.9 MCV 91.1 MCH 29.9 MCHC 32.8 RDW 12.6 Plt Count 255 MPV 10.2 Immature Gran % (Auto) 0.8 H Neut % (Auto) 87.2 H Lymph % (Auto) 6.6 L [place]ite % (Auto) 5.3 Eos % (Auto) 0.0 L Baso % (Auto) 0.1 Lymph # (Auto) 0.63 L [place] # (Auto) 0.51 Eos # (Auto) 0.00 L Baso # (Auto) 0.01 Abs Immat Gran (auto) 0.08 H Absolute Neuts (auto) 8.35 H Absolute Nucleated RBC 0.00 Nucleated RBC % 0.0 PT INR APTT D-Dimer Sodium 137 137 Potassium 4.4 3.6 Chloride 105 101 Carbon Dioxide 26 28 Anion Gap 6 8 BUN 21 H 16 Creatinine 0.98 0.99 Estim Creat Clear Calc 88 Not Reportable Estimated GFR > 60 > 60 Glucose 336 H 128 H POC Capillary Glucose 287 H Calculated Osmolality 300 H 287 Lactic Acid Calcium 8.6 8.8 Magnesium 2.5 H Total Bilirubin 0.6 1.2 AST 25 28 ALT 25 22 Alkaline Phosphatase 78 81 Troponin I 0.016 NT-Pro-B Natriuret Pep 126 H Total Protein 6.6 7.3 Albumin 3.6 4.0 Urine Color Urine Appearance Urine pH Ur Specific [place] Urine Protein Urine Glucose (UA) Urine Ketones Ur Blood (Man) Urine Nitrate Urine Bilirubin Urine Urobilinogen Leukocyte Esterase Rfl Urine RBC Urine WBC Ur Squamous Epith Cells Urine Bacteria Influenza A (RT-PCR) Negative Influenza B (RT-PCR) Negative RSV (RT-PCR) Negative SARS-CoV-2 RNA (RT-PCR) Negative 03/24/25 03/24/25 17:32 17:11 WBC 10.7 RBC 4.92 Hgb 14.8 Hct 44.8 MCV 91.1 MCH 30.1 MCHC 33.0 RDW 12.6 Plt Count 242 MPV 10.0 Immature Gran % (Auto) 0.7 H Neut % (Auto) 67.3 Lymph % (Auto) 16.3 L [place] % (Auto) 14.4 H Eos % (Auto) 0.8 L Baso % (Auto) 0.5 Lymph # (Auto) 1.75 Granite # (Auto) 1.55 H Eos # (Auto) 0.09 Baso # (Auto) 0.05 Abs Immat Gran (auto) 0.07 H Absolute Neuts (auto) 7.22 H Absolute Nucleated RBC 0.00 Nucleated RBC % 0.0 PT 11.9 INR 1.1 APTT 27.4 D-Dimer 0.81 H* Sodium Potassium Chloride Carbon Dioxide Anion Gap BUN Creatinine Estim Creat Clear Calc Estimated GFR Glucose POC Capillary Glucose Calculated Osmolality Lactic Acid 1.6 Calcium Magnesium Total Bilirubin AST ALT Alkaline Phosphatase Troponin I NT-Pro-B Natriuret Pep Total Protein Albumin Urine Color Yellow Urine Appearance Clear Urine pH 6.0 Ur Specific [place] <= 1.005 L Urine Protein Trace H Urine Glucose (UA) Negative Urine Ketones 2+ H Ur Blood (Man) Negative Urine Nitrate Negative Urine Bilirubin Negative Urine Urobilinogen 2.0 H Leukocyte Esterase Rfl Negative Urine RBC 0-2 Urine WBC 0-3 Ur Squamous Epith Cells None seen Urine Bacteria None seen Influenza A (RT-PCR) Influenza B (RT-PCR) RSV (RT-PCR) SARS-CoV-2 RNA (RT-PCR) Imaging Radiologist's impression: CTA: CTA chest PE protocol Ordering provider: Isidro Garcia MD History: 69 years Male with . shortness of breath with elevated D-dimer . Comparison: None. Technique: CT angiogram chest was performed following timed intravenous injection of contrast. Thin slice axial images and reformatted coronal images were obtained. Three dimensional reformatted images of the chest were also obtained using a [employer] workstation. . Automated exposure control and iterative reconstruction technique were employed. The dose-length product was 810.63 mGy- cm. 90 mL Omnipaque 350 was given IV. Findings: PULMONARY ARTERIES: No pulmonary embolus. VISUALIZED THORACIC INLET: Normal. MEDIASTINUM: Aorta/coronary arteries: Mild atheromatous disease. Heart/other: The heart is not enlarged. Lymph nodes: No mediastinal or hilar adenopathy. LUNGS: Left basilar pneumonia is noted. Minimal infiltrate is also seen in the right lung base. Minimal infiltrate is seen in the left upper lobe laterally. No pulmonary nodules or masses. No effusions. No pneumothorax. VISUALIZED UPPER ABDOMEN: Fat infiltration of the liver. Small sliding hiatus hernia. Otherwise, the visualized upper abdomen is normal. MUSCULOSKELETAL: Soft tissues: The superficial soft tissues are normal. Bones: Normal spine. IMPRESSION: 1. No pulmonary embolism. 2. Bibasilar pneumonia more on the left side. Minimal infiltrate in the left upper lobe. 3. Fat infiltration of the liver. 4. Small sliding hiatus hernia. DS: Summary Hospital Course Reason for hospitalization: acute respiratory failure with hypoxia secondary to pneumonia Hospital Course: Taurus Meraz is a 69 year old male who presented to the emergency department with complaints of worsening shortness a breath and congestion. Patient reported symptoms began about a week and half ago after a bike riding trip at which he assumed it was just a upper respiratory infection attempted OTC medications with no relief presented today with continued shortness a breath and productive cough. Patient denied any chest pain, nausea, vomiting, fever, or chills. patient reports past medical history of diabetes, arrhythmias, anxiety, diabetic neuropathy, and BPH. in the emergency department patient was requiring supplemental oxygen to maintain 92% been placed on 2 L a CTA chest was completed that showed no pulmonary embolism but did show bibasilar pneumonia more on the left side, other labs unremarkable however he was tachycardic. patient was admitted to the medical unit for treatment of pneumonia. Patient received IV Rocephin and azithromycin with DuoNeb treatment and a dose of 125 mg methylprednisone in the emergency department patient was admitted for overnight observation and to continue to wean oxygen as tolerated. Follow up with patient next day with overall improvement still had mild productive cough but had been weaned off oxygen. Still with normal WBC and remained afebrile. Patient overall stated he was feeling better he was discharged home on oral Augmentin as well as duo nebs and inhaler. Encourage patient to also continue to use his incentive spirometer and could use OTC mucolytics for secretions and cough. Patient was advised if symptoms worsened or a developed worsening shortness a breath to return for medical evaluation. patient did have some tachycardia and mild hypertension however he had not taken his home medications of atenolol plan for follow-up with primary care physician within next week or 2 and will need close BP monitoring at home. patient acknowledged and agreed with discharge plan he is ambulatory and was discharged home. Status at Discharge Functional status at discharge: independent ambulation Overall status at discharge: patient is progressing back to baseline Time Spent with Patient Time attestation: Total time spent providing and/or coordinating discharge services: Time spent: Greater than 30 minutes DS: Admitting Diagnosis Discharge Date 03/25/2025 Admitting Diagnosis acute respiratory failure with hypoxia secondary to pneumonia DS: Discharge Diagnosis Discharge Diagnosis (1) Acute respiratory failure with hypoxia: Code(s): J96.01 - Acute respiratory failure with hypoxia Status: Acute (2) Pneumonia: Qualifiers: Laterality: left Lung location: lower lobe of lung Pneumonia type: due to unspecified organism Qualified Code(s): J18.9 - Pneumonia, unspecified organism Code(s): J18.9 - Pneumonia, unspecified organism Status: Acute (3) Diabetic neuropathy: Code(s): E11.40 - Type 2 diabetes mellitus with diabetic neuropathy, unspecified Status: Acute (4) BPH (benign prostatic hyperplasia): Code(s): N40.0 - Benign prostatic hyperplasia without lower urinary tract symptoms Status: Acute (5) Diabetes: Code(s): E11.9 - Type 2 diabetes mellitus without complications Status: Acute (6) Anxiety: Code(s): F41.9 - Anxiety disorder, unspecified Status: Acute Discharge Plan Discharge Attending physician on discharge: Tito Chaudhari Consulting providers: Nhi Kahn Discharging Clinician: Nhi Kahn Anticipated Discharge Date/Time: 03/25/25 10:05 Patient Disposition: Home Activity: may shower and as tolerated Diet: diabetic Discharge Instructions: Pneumonia: * I have prescribed Augmentin please take as indicated and complete even if feeling better * I have also prescribed Duo nebulizers recommend b.i.d. * may use her inhaler as needed for wheezing and shortness of breaths * continue to use your incentive spirometer * can use mucolytic OTC for cough and secretions * may use acetaminophen for fever and mild pain * Increase water intake stay hydrated How can you care for yourself at home? • Keep track of any new symptoms or changes in your symptoms. • Rest until you feel better. • Be safe with medicines. Take your medicines exactly as prescribed. Call your doctor if you think you are having a problem with your medicine. • Do not drive after taking a prescription pain medicine. • Ensure to follow-up with primary care physician as indicated and provide updated medication list provided to you at discharge. When should you call for help? Call 911 anytime you think you may need emergency care. For example, call if: • You passed out (lost consciousness). Call your doctor now or seek immediate medical care if: • You have new symptoms like fever, difficulty breathing, Chest pain, vomiting, or rash. • You have new or different pain. • You are confused and are having trouble thinking clearly. • Your symptoms are getting worse. Watch closely for changes in your health, and be sure to contact your doctor if: • You do not get better as expected. Patient Instructions: Antibiotic Form, Amoxicillin/Clavulanate Potassium (By mouth), Fall Prevention for Older Adults (DC), Community Acquired Pneumonia (DC) Patient Language: Portuguese Stand Alone Forms: General Discharge Information Follow-up/Referrals: Dann Adamson MD [Primary Care Provider] - 2 weeks Discharge Medications: New ipratropium-albuterol 0.5 mg-3 mg(2.5 mg base)/3 mL solution for nebulization 3 ml inhalation Q6H PRN (Reason: shortness of breath or wheezing) Qty: 90 0RF amoxicillin-pot clavulanate 875-125 mg tablet 1 tablet PO Q12H Qty: 14 0RF albuterol sulfate [Ventolin HFA] 90 mcg/actuation HFA aerosol inhaler 1 inh inhalation QID PRN (Reason: shortness of breath or wheezing) Qty: 6.7 0RF Continued tamsulosin 0.4 mg capsule 0.4 mg PO Q24H atenolol 25 mg tablet 25 mg PO Q24H glimepiride 4 mg tablet 4 mg PO BID duloxetine 60 mg capsule,delayed release(DR/EC) 60 mg PO .COMPLEX Rx Instructions: 60 mg orally BID; pregabalin 75 mg capsule 75 mg PO Q12H Rybelsus 14 mg tablet 14 mg PO DAILY@0800 Date of admission: 03/24/25 19:52 Primary Care Provider: Dann Adamson Admitting Provider: Tito Chaudhari Attending physician on admission: Tito Chaudhari Condition: Improved Quality If No VTE Prophylaxis Answer both mechanical and pharmacologic: Reason no mechanical VTE proph: low risk/not indicated -Patient's previous records reviewed on admission -ER notes reviewed in detail on admission -discussed all findings and current treatment plan with patient/Family/POA -Consultations reviewed for recommendations -Patient's disposition for safe discharge discussed with case management social worker Dictation performed by [employer] direct speech recognition software, therefore furniture assembler and installer variants and typographical errors may occur. Hospitalist [facility] Advance Care Plan I have confirmed that the patient's Advanced Care Plan is present, code status is documented, or surrogate decision maker is listed in patient medical record.: Yes Medication Reconciliation I have utilized all available resources to obtain, update and review the patients current medications (includes all prescriptions, OTC, herbals, cannabis, and nutritional supplements).: Yes The patient is not eligible for med reconciliation; the patient is in a emergent medical situation where delaying treatment would jeopardize the patients health.: No Heart Failure (Exclusion) Patient has history of Heart Transplant or Left Ventricular Assistive Device?: No IF YES, STOP HERE Heart Failure (Qualifier) Patient has current or prior documentation of LVEF less than or equal to 40%, or mod/servere depressed LVSF?: No IF NO, STOP HERE
[2025-03-25] MEDS: PREGABALIN (*CRX) 25 MG CAPSULE 75 MG PO (10:42)
[2025-03-25] MEDS: TAMSULOSIN HCL 0.4 MG CAPSULE PO (10:42)
[2025-03-25] MEDS: AMOXICILLIN/CLAVULANATE K 875-125 MG TAB 1 TABLET PO (10:42)
[2025-03-25 10:43] VITALS: PULSE 113
[2025-03-25] MEDS: DULoxetine HCL 30 MG CAPSULE.DR 60 MG PO (10:43)
[2025-03-25] MEDS: atenoloL 25 MG TABLET PO (10:43)
[2025-03-25] MEDS: SODIUM CHLORIDE 0.9% IV 1,000 ML 100 ML IV CONT (10:43)
--- NOTE | 2025-03-25 11:53 | PC.NURSE ---
Patient discharged to home. All instruction verbally given, patient voiced understanding. Instructed to warehouse picker nebulizer at pharmacy when he picked up his meds. Patient voiced agreement. Patient escorted out of facility via wheelchair to his personal vehicle. Patient voiced appreciation to all staff.
--- NOTE | 2025-03-28 10:16 | PC.NURSE ---
Discharge Call back made. Pt informs he does not have any questions regarding discharge instructions.He has not made appointment with Dr. Adamson yet but intends to.
== END 2025-03-25 11:30 | disposition home or self-care (01) ==
LOC: CHSED 19:52 → CHS2ND 20:12
PROVIDERS: Admitting Provider Internal Medicine; Emergency Provider Emergency Medicine; PCP Internal Medicine; Visit Provider Internal Medicine
DX: J18.9 Pneumonia, unspecified organism (principal); J96.01 Acute respiratory failure with hypoxia; E11.40 Type 2 diabetes mellitus with diabetic neuropathy, unspecified; N40.0 Benign prostatic hyperplasia without lower urinary tract symptoms; F41.9 Anxiety disorder, unspecified; Z20.822 Contact with and (suspected) exposure to COVID-19; Z79.84 Long term (current) use of oral hypoglycemic drugs; Z79.899 Other long term (current) drug therapy
CPT/HCPCS: 36415; 71045; 71275; 80053; 81001; 82948; 83605; 83735; 83880; 84484; 85025; 85380; 85610; 85730; 87040; 87637; 93005; 94640; 96361; 96365; 96367; 96375; 99285; A9270; G0378; J0456; J0696; J2919; J7030; Q9967

== ENCOUNTER 2025-09-06 14:05 | Outpatient (CLI) | payer OTHER, MEDICARE, SELFPAY ==
[2025-09-06 14:23] LABS: Hematocrit 47.9 % (37.0-46.0); Hemoglobin 15.8 g/dL (12.4-15.3); Immature Granulocyte Percent A 0.5 % (0.0-0.0); Lymphocytes Absolute Auto 1.58 K/mm3 (1.10-4.50); Mean Corpuscular HGB Conc 33.0 g/dL (32-36); Mean Corpuscular Hemoglobin 30.2 pg (27.0-31.0); Mean Corpuscular Volume 91.4 fL (78.0-102.0); Nucleated Red Blood Cells Absolute Auto 0.00 K/mm3 (0.00-0.00); Nucleated Red Blood Cells Perc 0.0 % (0-0.0); Platelet Count Result 241 K/mm3 (150-420); Red Blood Count 5.24 M/mm3 (4.70-6.10); White Blood Count 6.1 K/mm3 (4.8-10.8)
[2025-09-06 14:44] LABS: Hemoglobin A1C 10.5 % (<5.7)
[2025-09-06 14:49] LABS: Alanine Aminotransferase 34 U/L (6-50); Albumin Level 4.8 g/dL (3.5-5.1); Alkaline Phosphatase 82 U/L (38-126); Anion Gap 11 mmol/L (4-12); Aspartate Amino Transferase 30 U/L (17-59); Bilirubin,Total 0.8 mg/dL (0.2-1.3); Blood Urea Nitrogen 17 mg/dL (9-20); Calcium 10.1 mg/dL (8.4-10.2); Carbon Dioxide 31 mmol/L (22-30); Chloride 97 mmol/L (98-107); Cholesterol 246 mg/dL (0-200); Estimated Glomerular Filt Rate > 60; Glucose 264 mg/dL (65-110); HDL Direct 57 mg/dL; Osmolality Calculated 298 mOsm/kg (285-295); Potassium 4.6 mmol/L (3.4-5.0); Sodium 139 mmol/L (137-145); Total Protein 8.5 g/dL (6.3-8.2); Triglycerides 260 mg/dL (<150)
[2025-09-06 15:05] LABS: Free T4 Free Thyroxine 0.90 ng/dL (0.78-2.19)
[2025-09-06 15:19] LABS: Thyroid Stimulating Hormone 0.816 uIU/mL (0.465-4.680)
[2025-09-06 15:44] LABS: Add Urine Microscopic? YES; Appearance Urine Clear (Clear); Glucose Urine UA 2+ (Negative); Leukocyte Esterase Ur Negative (Negative); Nitrate Urine Negative (Negative); Specific Grav Ur 1.025 (1.010-1.020)
[2025-09-06 15:56] LABS: MALB Creatinine Ratio 33.2 mg/g (0-30)
== END 2025-09-06 14:06 | disposition home or self-care (01) ==
PROVIDERS: PCP Internal Medicine; Visit Provider Nurse Practitioner Family
DX: E11.65 Type 2 diabetes mellitus with hyperglycemia (principal); I10 Essential (primary) hypertension; E78.5 Hyperlipidemia, unspecified
CPT/HCPCS: 36415; 80053; 80061; 81001; 82043; 83036; 84439; 84443; 85025